=== PATIENT | female | born 1980 | race Caucasian/White ===

== ENCOUNTER 2016-06-22 11:54 | Emergency (ER) | payer OTHER ==
[2016-06-22 12:20] VITALS: BP 113/68
--- NOTE | 2016-06-22 12:52 | UC ---
Back Pain HPI - HPI Summary HPI Summary: complaint of lower back that started approx 1 month ago for the past 2 days the pain has been increasing in lumbar area constant aching pain in her lumbar spine non radiating pain any movement increases the pain nothing lessens the pain works as a housekeeping department worker denies any trauma tried a heating pad and aleve without relief denies fever, unintentional weight , incontinence - History of Current Complaint Chief Complaint: UCBackPain Stated Complaint: LOWER BACK PAIN Time Seen by Provider: 06/22/16 12:45 Hx Obtained From: Patient Hx Last Menstrual Period: 06/19/16 Character: Aching Aggravating: Movement Alleviating: Nothing - Allergies/Home Medications Allergies/Adverse Reactions: Allergies Allergy/AdvReac Type Severity Reaction Status Date / Time Penicillins Allergy Intermediate SWELLING Verified 06/22/16 12:20 AND HIVES Home Medications: Home Medications [id number] 440 mg PO BID PRN 06/22/16 [History] PMH/Surg Hx/FS Hx/Imm Hx Previously Healthy: Yes - immune systems difficulties- no PCP Endocrine History Of: Denies: Diabetes, Thyroid Disease Cardiovascular History Of: Denies: Cardiac Disorders, Hypertension Respiratory History Of: Denies: COPD, Asthma GI/ History Of: Denies: Ulcer - Surgical History Surgical History: Yes Surgery Procedure, Year, and Place: C-SECTIONS X'S 2 - Family History Known Family History: Positive: Other - mother with vacular disease Negative: Cardiac Disease, Hypertension, Diabetes - Social History Occupation: Employed Full-time Lives: With Family Alcohol Use: None Substance Use Type: None Smoking Status (MU): Heavy Every Day Tobacco Smoker Type: Cigarettes Amount Used/How Often: 1 PPD Length of Time of Smoking/Using Tobacco: 15 YRS Have You Smoked in the Last Year: Yes Cessation Counseling: Patient Advised to Stop Review of Systems Constitutional: Negative Skin: Negative Eyes: Negative ENT: Negative Respiratory: Negative Cardiovascular: Negative Gastrointestinal: Negative Genitourinary: Negative Motor: Negative Neurovascular: Negative Musculoskeletal: Other: - lower back pain Neurological: Negative Psychological: Negative All Other Systems Reviewed And Are Negative: Yes Physical Exam Triage Information Reviewed: Yes Appearance: No Pain Distress, Well-Nourished Vital Signs: Initial Vital Signs Temp 98.6 F 06/22/16 12:13 Pulse 73 06/22/16 12:13 Resp 18 06/22/16 12:13 BP 113/68 05/01/17 12:13 Vital Signs Reviewed: Yes Eyes: Positive: Conjunctiva Clear ENT: Positive: Pharynx normal, TMs normal Neck: Positive: No Lymphadenopathy Respiratory: Positive: Lungs clear, Normal breath sounds, No respiratory distress, No accessory muscle use Cardiovascular: Positive: RRR, No Murmur, Pulses Normal Abdomen Description: Positive: Nontender, Soft Bowel Sounds: Positive: Present Musculoskeletal: Positive: No Edema, Other: - Spine have no noted deformities or signs of inflammation. Curvature of thoracic, and lumbar spine are within normal limits. Bony features of shoulders and hips are of equal height bilaterally. Posture is upright, and gait is smooth and normal. Spinous processes [id number] tender, o T1-L2 palpable, midline, and non-tender; No step- offs. lumbar paraspinal tenderness bilaterally. cannot extend back d/t pain . Patient can flex only slightly forward due to pain. Lateral bending causes discomfort Neurological: Positive: Alert, Other: - SLR negative, patellar reflexes intact Psychological Exam: Normal Skin Exam: Normal Back Pain Course/Dx - Differential Dx/Diagnosis Differential Diagnosis/HQI/PQRI: Herniated Disc, Strain, Sprain Provider Diagnoses: lower back pain Discharge - Discharge Plan Condition: Stable Disposition: HOME Prescriptions: Cyclobenzaprine TAB* [Flexeril 10 MG TAB*] 10 mg PO TID PRN #30 tab PRN Reason: Spasms - Muscle Ibuprofen TAB* [Motrin TAB* 800 MG] 800 mg PO Q8H #30 tab Patient Education Materials: Low Back Strain (ED) Referrals: Non Staff,Doctor [Primary Care Provider] - [facility] [place] [facility] [Outside] Additional Instructions: Start flexeril as directed. Do not drink alcohol or drive while taking flexeril. Please call physical therapy for further evaluation and treatment. Take ibuprofen for fever or pain. Increase fluids and rest. Please review your discharge instructions. If your symptoms do not improve please call your primary care provider or return to urgent care.
[2016-06-22] MEDS ORDERED: Ketorolac INJ* 60 MG/2 ML VIAL IM ONE (12:57)
--- NOTE | 2016-06-22 13:22 | RAD ---
HISTORY: Low back pain COMPARISONS: April 29, 2014 VIEWS: 3 , Frontal, lateral, and coned-down lateral sacral views of the lumbar spine FINDINGS: ALIGNMENT: There is straightening of the normal lumbar lordosis. VERTEBRAL BODIES: The vertebral body heights are normal. The interpedicular distances are normal. JOINTS: There is facet hypertrophy change at L5-S1 INTERVERTEBRAL DISCS: There is mild diffuse loss of intervertebral disc height. SOFT TISSUE: Unremarkable. OTHER: The pelvis is unremarkable. The lung bases are clear. IMPRESSION: 1. MILD DEGENERATIVE CHANGES MOST PRONOUNCED AT L5-S1. 2. STRAIGHTENING OF THE LUMBAR LORDOSIS
== END 2016-06-22 13:43 | disposition home or self-care (01) ==
LOC: UCCORT 11:54
DX: M54.5 Low back pain (principal); Z88.0 Allergy status to penicillin
CPT/HCPCS: 72100; 96372; 99212; G0463; J1885

== ENCOUNTER 2016-07-05 14:47 | Emergency (ER) | payer OTHER ==
[2016-07-05 15:25] VITALS: BP 117/83
--- NOTE | 2016-07-05 15:34 | UC ---
Ear Complaint HPI - HPI Summary HPI Summary: woke up this morning with right ear irritation hears a sound like poprocks in her ear worried that there was a bug in her ear denies any ear pain but does feel pressure still hearing a cracking sound denies nasal congestion/ cough, sore throat fever hasn't taken any medication for symptoms - History of Current Complaint Chief Complaint: UCEar Stated Complaint: RIGHT EAR ISSUE Time Seen by Provider: 07/05/16 15:27 Hx Obtained From: Patient Hx Last Menstrual Period: 05/31/16 - Allergies/Home Medications Allergies/Adverse Reactions: Allergies Allergy/AdvReac Type Severity Reaction Status Date / Time Penicillins Allergy Intermediate SWELLING Verified 07/05/16 15:20 AND HIVES PMH/Surg Hx/FS Hx/Imm Hx Previously Healthy: Yes Endocrine History Of: Denies: Diabetes, Thyroid Disease Cardiovascular History Of: Denies: Cardiac Disorders, Hypertension Respiratory History Of: Denies: COPD, Asthma GI/ History Of: Denies: Ulcer - Surgical History Surgical History: Yes Surgery Procedure, Year, and Place: C-SECTIONS X'S 2 - Family History Known Family History: Positive: Other - mother with vacular disease Negative: Cardiac Disease, Hypertension, Diabetes - Social History Occupation: Employed Full-time Lives: With Family Alcohol Use: None Substance Use Type: None Smoking Status (MU): Heavy Every Day Tobacco Smoker Type: Cigarettes Amount Used/How Often: 1 PPD Length of Time of Smoking/Using Tobacco: 15 YRS Have You Smoked in the Last Year: Yes - Immunization History Most Recent Influenza Vaccination: NONE Most Recent Tetanus Shot: UTD Most Recent Pneumonia Vaccination: NONE Review of Systems Constitutional: Negative Skin: Negative Eyes: Negative ENT: Ear Ache Respiratory: Negative Cardiovascular: Negative Gastrointestinal: Negative Genitourinary: Negative Motor: Negative Neurovascular: Negative Musculoskeletal: Negative Neurological: Negative Psychological: Negative All Other Systems Reviewed And Are Negative: Yes Physical Exam Triage Information Reviewed: Yes Appearance: No Pain Distress, Well-Nourished Vital Signs: Initial Vital Signs Temp 98.8 F 07/05/16 15:20 Pulse 79 07/05/16 15:20 Resp 16 07/05/16 15:20 BP 117/83 07/05/16 15:20 Pulse Ox 100 07/05/16 15:20 Vital Signs Reviewed: Yes Eyes: Positive: Conjunctiva Clear ENT: Positive: Pharynx normal, TM bulging - right, Other: - right ear canal with erythema and erythema. Negative: Nasal congestion, TM red Neck: Positive: No Lymphadenopathy Respiratory: Positive: Lungs clear, Normal breath sounds, No respiratory distress Cardiovascular: Positive: RRR, No Murmur, Pulses Normal Abdomen Description: Positive: Nontender, Soft Bowel Sounds: Positive: Present Musculoskeletal: Positive: No Edema Neurological: Positive: Alert Psychological Exam: Normal Skin Exam: Normal Ear Complaint Course/Dx - Differential Dx/Diagnosis Differential Diagnosis/HQI/PQRI: Cerumen Impaction, Foreign Body, Otitis Externa , Otitis Media Provider Diagnoses: right otitis externa. eustachion tube dysfunction Discharge - Discharge Plan Condition: Stable Disposition: HOME Prescriptions: Ciproflox/Dexameth OTIC.SUSP* [Ciprodex OTIC.SUSP*] 4 drop RIGHT EAR BID #1 btl Fluticasone NASAL SPRAY 50MCG* [Flonase NASAL SPRAY 50MCG*] 2 spray RIGHT NARE DAILY #1 btl Patient Education Materials: Otitis Externa (ED) Referrals: Non Staff,Doctor [Primary Care Provider] - [facility] [place] [facility] [Outside] Additional Instructions: Please take antibiotic ear drops and flonase as directed stop using q-tips to clean out your ears Increase fluids and rest Take acetaminophen or ibuprofen for fever or pain Please review your discharge instructions. If your symptoms do not improve please call your primary care provider or return to urgent care.
== END 2016-07-05 15:49 | disposition home or self-care (01) ==
LOC: UCCORT 14:47
DX: H60.91 Unspecified otitis externa, right ear (principal); H69.91 Unspecified Eustachian tube disorder, right ear; Z88.0 Allergy status to penicillin; F17.210 Nicotine dependence, cigarettes, uncomplicated
CPT/HCPCS: 99212; G0463